=== PATIENT | female | born 1975 | race Native Hawaiian/Other Pacific Islander ===

== ENCOUNTER 2018-12-06 07:42 | Day surgery (SDC) | payer OTHER ==
[~2018-12-06 07:42] MED LIST: AMBIEN CR12.5 MG PO; CLARITIN10 MG PO; DIAZ5TAB20 PO; EPITOL200 MG PO; GABA300C2 PO; HYDR25TA60 PO; KRILL OIL OMEG300 MG PO; LEVETIRACETA500 M1 PO; NEXIUM40 M1 PO; NIACIN500 MG PO; PANT40TA PO; PARO20TA3 PO; PERCOCET1 TA3 PO; PROMETHAZINE25 MG PO; TOPAMAX200 MG PO; ZANAFLEX2 MG PO
== END 2018-12-06 11:25 | disposition home or self-care (01) ==
LOC: OR 07:42
PROC: 009U3ZZ Drainage of Spinal Canal, Percutaneous Approach (ICD-10-PCS; principal; 2018-12-06)
PROC: B01BYZZ Fluoroscopy of Spinal Cord using Other Contrast (ICD-10-PCS; 2018-12-06)
DX: G93.2 Benign intracranial hypertension (principal)
CPT/HCPCS: 82945; 84155; 89050

== ENCOUNTER 2019-02-28 09:34 | Day surgery (SDC) | payer OTHER ==
[~2019-02-28] VITALS: Ht 177.8 cm; Wt 120.2 kg
== END 2019-02-28 11:05 | disposition home or self-care (01) ==
LOC: OR 09:34
PROC: 3E0R33Z Introduction of Anti-inflammatory into Spinal Canal, Percutaneous Approach (ICD-10-PCS; principal; 2019-02-28)
PROC: B01BYZZ Fluoroscopy of Spinal Cord using Other Contrast (ICD-10-PCS; 2019-02-28)
DX: M51.16 Intervertebral disc disorders with radiculopathy, lumbar region (principal)
CPT/HCPCS: J1020

== ENCOUNTER 2019-04-03 07:55 | Day surgery (SDC) | payer OTHER | END 2019-04-03 09:57 | disposition home or self-care (01) | LOC: OR 07:55 | PROC: 3E0R33Z Introduction of Anti-inflammatory into Spinal Canal, Percutaneous Approach (ICD-10-PCS; principal; 2019-04-03) | PROC: B01BYZZ Fluoroscopy of Spinal Cord using Other Contrast (ICD-10-PCS; 2019-04-03) | DX: M51.16 Intervertebral disc disorders with radiculopathy, lumbar region (principal) | CPT/HCPCS: J1020 ==

== ENCOUNTER 2019-06-05 07:44 | Day surgery (SDC) | payer OTHER ==
[~2019-06-05] VITALS: Ht 177.8 cm; Wt 122.5 kg
[2019-06-05 08:32] LABS: PLATELET COUNT 337 K/uL (152-353)
[2019-06-05 08:41] LABS: POTASSIUM 4.4 mmol/L (3.6-5.2)
== END 2019-06-05 10:45 | disposition home or self-care (01) ==
LOC: OR 07:44
PROVIDERS: Pain Medicine Interventional Pain Medicine
PROC: 009U3ZX Drainage of Spinal Canal, Percutaneous Approach, Diagnostic (ICD-10-PCS; principal; 2019-06-05)
PROC: 00JU3ZZ Inspection of Spinal Canal, Percutaneous Approach (ICD-10-PCS; 2019-06-05)
DX: R51 Headache (principal); G93.2 Benign intracranial hypertension; R06.09 Other forms of dyspnea
CPT/HCPCS: 80053; 82945; 84155; 85027; 89050; 94664; 94760; J2001; J2250; J2405; J2704

== ENCOUNTER 2019-07-24 08:21 | Day surgery (SDC) | payer OTHER ==
[2019-07-24 09:14] LABS: POTASSIUM 3.7 mmol/L (3.6-5.2)
[2019-07-24 09:59] LABS: PLATELET COUNT 293 K/uL (152-353)
== END 2019-07-24 12:35 | disposition home or self-care (01) ==
LOC: OR 08:21
PROVIDERS: Pain Medicine Interventional Pain Medicine
PROC: 3E0T3BZ Introduction of Anesthetic Agent into Peripheral Nerves and Plexi, Percutaneous Approach (ICD-10-PCS; principal; 2019-07-24)
PROC: 3E0T33Z Introduction of Anti-inflammatory into Peripheral Nerves and Plexi, Percutaneous Approach (ICD-10-PCS; 2019-07-24)
PROC: BR16YZZ Fluoroscopy of Lumbar Facet Joint(s) using Other Contrast (ICD-10-PCS; 2019-07-24)
DX: M47.817 Spondylosis without myelopathy or radiculopathy, lumbosacral region (principal)
CPT/HCPCS: 80053; 85027; J1100; J2001; J2250; J2405; J2704

== ENCOUNTER 2019-08-14 08:07 | Day surgery (SDC) | payer OTHER ==
[2019-08-14 09:55] LABS: PLATELET COUNT 336 K/uL (152-353)
== END 2019-08-14 12:30 | disposition home or self-care (01) ==
LOC: OR 08:07
PROVIDERS: Pain Medicine Interventional Pain Medicine
PROC: 3E0T3BZ Introduction of Anesthetic Agent into Peripheral Nerves and Plexi, Percutaneous Approach (ICD-10-PCS; principal; 2019-08-14)
PROC: 3E0T33Z Introduction of Anti-inflammatory into Peripheral Nerves and Plexi, Percutaneous Approach (ICD-10-PCS; 2019-08-14)
DX: M47.817 Spondylosis without myelopathy or radiculopathy, lumbosacral region (principal); R06.02 Shortness of breath
CPT/HCPCS: 85027; 94640; 94664; 94760; J1100; J2001; J2250; J2704

== ENCOUNTER 2019-10-09 08:28 | Day surgery (SDC) | payer OTHER ==
[~2019-10-09] VITALS: Ht 30.5 cm; Wt 0.5 kg
[2019-10-09 09:14] LABS: PLATELET COUNT 275 K/uL (152-353)
[2019-10-09 09:23] LABS: POTASSIUM 3.8 mmol/L (3.6-5.2)
== END 2019-10-09 11:30 | disposition home or self-care (01) ==
LOC: OR 08:28
PROVIDERS: Pain Medicine Interventional Pain Medicine
PROC: 3E0T3TZ Introduction of Destructive Agent into Peripheral Nerves and Plexi, Percutaneous Approach (ICD-10-PCS; principal; 2019-10-09)
PROC: BR16YZZ Fluoroscopy of Lumbar Facet Joint(s) using Other Contrast (ICD-10-PCS; 2019-10-09)
DX: M47.817 Spondylosis without myelopathy or radiculopathy, lumbosacral region (principal)
CPT/HCPCS: 36415; 80053; 85027; J2001; J2250; J2405; J2704

== ENCOUNTER 2019-10-30 07:40 | Day surgery (SDC) | payer OTHER | END 2019-10-30 10:15 | disposition home or self-care (01) | LOC: OR 07:40 | PROC: 3E0T3TZ Introduction of Destructive Agent into Peripheral Nerves and Plexi, Percutaneous Approach (ICD-10-PCS; principal; 2019-10-30) | PROC: BR16YZZ Fluoroscopy of Lumbar Facet Joint(s) using Other Contrast (ICD-10-PCS; 2019-10-30) | DX: M47.817 Spondylosis without myelopathy or radiculopathy, lumbosacral region (principal) | CPT/HCPCS: J2001; J2250; J2405; J2704 ==